=== PATIENT | female | born 1995 | race African-American/Black ===

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

== ENCOUNTER 2017-05-29 14:04 | Emergency (ER) | payer MEDICAID ==
[~2017-05-29] VITALS: Ht 144.8 cm; Wt 55.0 kg
[~2017-05-29 14:04] MED LIST changes: +ALBUAER3 INH; -CEPH-460 PO; +EPIN1INJ24 IM; +IBUP800T23 PO; +MACR100C2 PO; +PHEN-510 PO; +PRED20 PO; +PROZ20CA11 PO; -PYRI200T4 PO; +ZOFR4TAB3 SL
[2017-05-29 14:07] VITALS: BP 126/83; PULSE 103; RESP 15; TEMP 98.4; O2SAT 97
[2017-05-29] MEDS ORDERED: SODIUM CHLOR 0.9% 1000 ML INJ 1,000 ML IV ONE (15:45)
[2017-05-29 16:32] LABS: AUTOMATED NEUTROPHIL # 3.2 TH/MM3 (1.8-7.7); BASOPHIL # 0.1 TH/MM3 (0-0.2); EOSINOPHIL # 0.5 TH/MM3 (0-0.4); EOSINOPHIL % 6.9 % (0.0-4.0); HEMATOCRIT 40.6 % (35.0-46.0); HEMO FLAGS DIFF FINAL; LYMPH % 31.1 % (9.0-44.0); LYMPHOCYTE # 2.1 TH/MM3 (1.0-4.8); MEAN CELL VOLUME 85.7 FL (80.0-100.0); MEAN CORPUSCULAR HEMOGLOBIN 27.8 PG (27.0-34.0); MEAN CORPUSCULAR HGB CONC 32.5 % (32.0-36.0); MONO % 12.6 % (0.0-8.0); NEUT % 48.4 % (16.0-70.0); PLATELET COUNT 326 TH/MM3 (150-450); RED BLOOD COUNT 4.74 MIL/MM3 (4.00-5.30); RED CELL DISTRIBUTION WIDTH 15.3 % (11.6-17.2); WHITE BLOOD COUNT 6.6 TH/MM3 (4.0-11.0)
[2017-05-29 16:48] LABS: ALT (GPT) 28 U/L (9-42)
[2017-05-29 16:55] LABS: ANION GAP 7 MEQ/L (5-15); AST (GOT) 28 U/L (16-38); BICARBONATE 25.5 MEQ/L (21.0-32.0); BLOOD UREA NITROGEN 6 MG/DL (7-18); CHLORIDE 106 MEQ/L (98-107); GLOMERULAR FILTRATION RATE 91 ML/MIN (>89); SODIUM (NA) 138 MEQ/L (136-145)
--- NOTE | 2017-05-29 16:55 | PD ---
HPI Chief Complaint: Neuro Symptoms/ Deficits Time Seen by Provider: 15:36 Travel History International Travel<30 days: No Contact w/Intl Traveler<30days: No Traveled to known affect area: No History of Present Illness HPI This is a 21-year-old female who presents to the emergency department with generalized weakness. She says it's been coming in waves all day, intermittent , moderate severity. She says she's had trouble with it over the past month and she saw her primary care doctor who recommended that she get blood work performed but she hasn't got it done yet. She says when it happens her entire body goes week, constant, severe, to the point where she needs her boyfriend help her walk. She doesn't feel it more in her legs or her arms and she feels like she gets pins and needles in her arms and legs and she feels very tired. She says she feels very fatigued. PFSH Past Medical History Asthma: Yes Blood Disorders: Yes (sickle cell trait) Diminished Hearing: No Sickle Cell Disease: Yes (trait) Tetanus Vaccination: Unknown Influenza Vaccination: Yes ?: Not LMP: 05/28/17 Menopausal: No Social History Alcohol Use: No Tobacco Use: No Substance Use: No Allergies-Medications (Allergen,Severity, Reaction): Coded Allergies: No Known Allergies (Unverified , 12/02/16) Reported Meds & Prescriptions Reported Meds & Active Scripts Active Pyridium (Phenazopyridine HCl) 200 Mg Tablet 200 Tab PO Q8HR Proair Hfa 8.5 GM Inh (Albuterol Sulfate) 90 Mcg/Act Aer 2 Puff INH Q4-6H PRN 108 mcg/actuation Prednisone 20 Mg Tab 40 Mg PO DAILY Take 40 mg (2 tablets) daily for 5 days Macrobid (Nitrofurantoin Monohydrate Macrocrystals) 100 Mg Capsule 100 Mg PO BID Ibuprofen 800 Mg Tab 800 Mg PO Q6HR PRN Zofran Odt (Ondansetron Odt) 4 Mg Tab 4 Mg SL Q6HR PRN 3 Days Reported Prozac (Fluoxetine HCl) 20 Mg Cap 20 Mg PO DAILY Epinephrine Inj (Epinephrine) 0.15 Mg/0.3 Ml Inj 0.15 Mg IM DIRECTED Flonase Allergy Relief Children Nasal [place] (Fluticasone Nasal [place]) 50 Mcg/ Act [place] 2 [place] EACH NARE DAILY 50 mcg/spray Loratadine 10 Mg Tab 10 Mg PO DAILY Singulair (Montelukast Sodium) 10 Mg Tab 10 Mg PO HS Review of Systems Except as stated in HPI: all other systems reviewed are Neg Physical Exam Narrative GENERAL:Well appearing, no acute distress SKIN: Focused skin assessment warm and dry. HEAD: Atraumatic. Normocephalic. EYES: Pupils equal and round. No injection or drainage. ENT: Moist mucous membranes NECK: Trachea midline. CARDIOVASCULAR: Regular rate and rhythm. No murmur appreciated. RESPIRATORY: Clear to auscultation. Breath sounds equal bilaterally. GASTROINTESTINAL: Abdomen soft, non-tender, nondistended. MUSCULOSKELETAL: No obvious deformities. NEUROLOGICAL: Awake and alert. No obvious cranial nerve deficits. 5 out of 5 strength in the bilateral upper and lower extremities. No dysarthria or aphasia. No upper extremity ataxia. PSYCHIATRIC: Appropriate mood and affect; insight and judgment normal. Data Data Last Documented VS Vital Signs Date Time Temp Pulse Resp B/P (MAP) Pulse Ox O2 Delivery O2 Flow Rate FiO2 05/29/17 16:05 18 99 Room Air 05/29/17 14:07 98.4 103 126/83 (97) Orders Orders Complete Blood Count With Diff (05/29/17 15:45) Comprehensive Metabolic Panel (05/29/17 15:45) Creatine Kinase (Cpk) (05/29/17 15:45) ^ Insert Iv (05/29/17 15:45) Sodium Chlor 0.9% 1000 Ml Inj (Ns 1000 M (05/29/17 15:45) Thyroid Stimulating Hormone (05/29/17 15:45) Ed Urine Pregnancytest Poc (05/29/17 16:25) Urinalysis - C+S If Indicated (05/29/17 17:04) Labs Laboratory Tests Test 05/29/17 16:00 05/29/17 17:10 White Blood Count 6.6 TH/MM3 Red Blood Count 4.74 MIL/MM3 Hemoglobin 13.2 GM/DL Hematocrit 40.6 % Mean Corpuscular Volume 85.7 FL Mean Corpuscular Hemoglobin 27.8 PG Mean Corpuscular Hemoglobin Concent 32.5 % Red Cell Distribution Width 15.3 % Platelet Count 326 TH/MM3 Mean Platelet Volume 8.5 FL Neutrophils (%) (Auto) 48.4 % Lymphocytes (%) (Auto) 31.1 % Monocytes (%) (Auto) 12.6 % Eosinophils (%) (Auto) 6.9 % Basophils (%) (Auto) 1.0 % Neutrophils # (Auto) 3.2 TH/MM3 Lymphocytes # (Auto) 2.1 TH/MM3 Monocytes # (Auto) 0.8 TH/MM3 Eosinophils # (Auto) 0.5 TH/MM3 Basophils # (Auto) 0.1 TH/MM3 CBC Comment DIFF FINAL Differential Comment Blood Urea Nitrogen 6 MG/DL Creatinine 0.96 MG/DL Random Glucose 82 MG/DL Total Protein 7.4 GM/DL Albumin 3.5 GM/DL Calcium Level 8.8 MG/DL Alkaline Phosphatase 50 U/L Aspartate Amino Transf (AST/SGOT) 28 U/L Alanine Aminotransferase (ALT/SGPT) 28 U/L Total Bilirubin 0.3 MG/DL Sodium Level 138 MEQ/L Potassium Level 4.3 MEQ/L Chloride Level 106 MEQ/L Carbon Dioxide Level 25.5 MEQ/L Anion Gap 7 MEQ/L Estimat Glomerular Filtration Rate 91 ML/MIN Total Creatine Kinase 166 U/L Thyroid Stimulating Hormone 3rd Gen 0.835 uIU/ML Urine Color YELLOW Urine Turbidity CLEAR Urine pH 6.5 Urine Specific [place] 1.013 Urine Protein NEG mg/dL Urine Glucose (UA) NEG mg/dL Urine Ketones NEG mg/dL Urine Occult Blood LARGE Urine Nitrite NEG Urine Bilirubin NEG Urine Urobilinogen LESS THAN 2.0 MG/DL Urine Leukocyte Esterase NEG Urine RBC 48 /hpf Urine WBC 2 /hpf Urine Squamous Epithelial Cells 2 /hpf Urine Bacteria RARE /hpf Microscopic Urinalysis Comment CULT NOT INDICATED MDM Medical Decision Making Medical Screen Exam Complete: Yes Emergency Medical Condition: Yes Interpretation(s) Afebrile, mild tachycardia, normotensive No leukocytosis Differential Diagnosis Anemia, electrolyte abnormality, viral syndrome, Guillain-Evans, multiple sclerosis, depression Narrative Course This is a 21-year-old female who presents to the emergency department with generalized malaise and fatigue. Her neurologic exam is a little bit inconsistent. She doesn't give great effort to lift her arms but then she's easily able to do an ataxia exam and she is able to grab for things and adjust herself in bed. She was able to walk without difficulty but she gives a week and effort when she lifts her legs off the bed. I don't think her neurologic symptoms are physiologic. She has a strange affect and closes her eyes sometimes when talking to her. I suspect this may reflect some depression. Labs are obtained which are reassuring. I don't think she requires any neuroimaging as her weakness is global and more subjective and she appears otherwise well. Patient will be discharged home to follow up with her primary care physician. Diagnosis Primary Impression: Fatigue Qualified Codes: R53.83 - Other fatigue Patient Instructions: General Instructions Additional Instructions: If you develop severe worsening headache, persistent vomiting, numbness, weakness, difficulty walking or difficulty talking return to the emergency department immediately. Follow-up with her primary care physician without fail. Med/Other Pt SpecificInfo: No Change to Meds Disposition: 01 DISCHARGE HOME Condition: Stable Shani Hannah MD May 29, 2017 16:55
[2017-05-29 16:59] LABS: POTASSIUM 4.3 MEQ/L (3.5-5.1)
[2017-05-29 17:00] LABS: ALKALINE PHOSPHATASE 50 U/L (45-117); CREATINE KINASE 166 U/L (26-192); TOTAL BILIRUBIN ADULT 0.3 MG/DL (0.2-1.0)
[2017-05-29 17:52] LABS: BACTERIA, URINE RARE /hpf; BLOOD, URINE LARGE (NEG); COMMENT (UR) CULT NOT INDICATED; CULTURE IF INDICATED CULT NOT INDICATED; GLUCOSE,URINE NEG (NEG); KETONE, URINE NEG (NEG); NITRITE,URINE NEG (NEG); PH, URINE 6.5 (5.0-8.5); SQUAMOUS EPITHELIAL CELL URINE 2 /hpf (0-5); URINE COLOR YELLOW (YELLW/STRAW)
== END 2017-05-29 18:21 | disposition home or self-care (01) ==
LOC: NEPD 14:04
DX: R53.83 Other fatigue (principal); J45.909 Unspecified asthma, uncomplicated
CPT/HCPCS: 80053; 81001; 82550; 84443; 84703; 85025; 96360; 99284; J7030

== ENCOUNTER 2017-08-10 18:40 | Emergency (ER) | payer MEDICAID ==
[~2017-08-10] VITALS: Ht 144.8 cm; Wt 50.0 kg
[~2017-08-10 18:40] MED LIST changes: +IBUP1TAB7 PO; -IBUP800T23 PO
[2017-08-10 18:43] VITALS: BP 136/90; PULSE 94; RESP 16; TEMP 97.5; O2SAT 99
[2017-08-10] MEDS ORDERED: MACR100C2 PO (19:12)
[2017-08-10] MEDS ORDERED: PHEN0.4T PO (19:12)
[2017-08-10] MEDS ORDERED: PHEN-510 PO (19:12)
--- NOTE | 2017-08-10 19:19 | PD ---
HPI Chief Complaint: Complaint Time Seen by Provider: 19:04 Travel History International Travel<30 days: No Contact w/Intl Traveler<30days: No Traveled to known affect area: No History of Present Illness HPI 21-year-old black female presents emergent department with a 1-2 week history of urinary frequency, urgency and some mild dysuria. Patient states that this is similar to her urinary tract infections in the past. She denies any fever chills. No nausea vomiting. No back pain. No vaginal discharge or abnormal bleeding. Denies . Symptoms are moderate. No alleviating factors. PFSH Past Medical History Asthma: Yes Blood Disorders: Yes (sickle cell trait) Diminished Hearing: No Sickle Cell Disease: Yes (trait) ?: Not Menopausal: No Past Surgical History Surgical History: No Previous Surgery Social History Alcohol Use: No Tobacco Use: No Substance Use: No Allergies-Medications (Allergen,Severity, Reaction): Coded Allergies: No Known Allergies (Unverified , 12/02/16) Reported Meds & Prescriptions Reported Meds & Active Scripts Active Pyridium (Phenazopyridine HCl) 100 Mg Tab 100 Mg PO Q8H PRN Macrobid (Nitrofurantoin Monoh/Nitrofur Macro) 100 Mg Cap 100 Mg PO BID 7 Days Pyridium (Phenazopyridine HCl) 200 Mg Tablet 200 Tab PO Q8HR Macrobid (Nitrofurantoin Monohydrate Macrocrystals) 100 Mg Capsule 100 Mg PO BID Proair Hfa 8.5 GM Inh (Albuterol Sulfate) 90 Mcg/Act Aer 2 Puff INH Q4-6H PRN 108 mcg/actuation Prednisone 20 Mg Tab 40 Mg PO DAILY Take 40 mg (2 tablets) daily for 5 days Ibuprofen 800 Mg Tab 800 Mg PO Q6HR PRN Zofran Odt (Ondansetron Odt) 4 Mg Tab 4 Mg SL Q6HR PRN 3 Days Reported Prozac (Fluoxetine HCl) 20 Mg Cap 20 Mg PO DAILY Epinephrine Inj (Epinephrine) 0.15 Mg/0.3 Ml Inj 0.15 Mg IM DIRECTED Flonase Allergy Relief Children Nasal [place] (Fluticasone Nasal [place]) 50 Mcg/ Act [place] 2 [place] EACH NARE DAILY 50 mcg/spray Loratadine 10 Mg Tab 10 Mg PO DAILY Singulair (Montelukast Sodium) 10 Mg Tab 10 Mg PO HS Review of Systems Except as stated in HPI: all other systems reviewed are Neg Physical Exam Narrative GENERAL: Well-developed, well-nourished in no acute distress. Nontoxic appearing. HEAD: Normocephalic, atraumatic. EYES: Pupils equal round and reactive. Extraocular motions intact. No scleral icterus. No injection or drainage. ENT: TMs clear without erythema. The external auditory canals clear. Nose: clear . Posterior pharynx is pink and moist. No tonsillar edema or exudate. Uvula midline. Airway patent. NECK: Trachea midline.Supple, nontender, moves head freely. No central bony tenderness or spasm. CARDIOVASCULAR: Regular rate and rhythm without murmurs, gallops, or rubs. RESPIRATORY: Clear to auscultation. Breath sounds equal bilaterally. No wheezes , rales, or rhonchi. GASTROINTESTINAL: Abdomen soft, non-tender, nondistended. No hepato-splenomegaly , or palpable masses. No guarding. EXTREMITIES: No clubbing, cyanosis, or edema. No joint tenderness, effusion, or edema noted. BACK: Nontender without deformity or crepitance. No flank tenderness. Data Data Last Documented VS Vital Signs Date Time Temp Pulse Resp B/P (MAP) Pulse Ox O2 Delivery O2 Flow Rate FiO2 08/10/17 18:43 97.5 94 16 136/90 (105) 99 Room Air Orders Orders Urinalysis - C+S If Indicated (08/10/17 19:07) Ed Urine Pregnancytest Poc (08/10/17 19:07) MDM Medical Decision Making Medical Screen Exam Complete: Yes Emergency Medical Condition: Yes Medical Record Reviewed: Yes Interpretation(s) Urine test: Negative Differential Diagnosis Differential diagnoses: Pyelonephritis, UTI, vaginitis Narrative Course Patient's urine pricey test is negative. She is given prescriptions for Macrobid and Pyridium. This is UTI Diagnosis Primary Impression: UTI (urinary tract infection) Qualified Codes: N30.00 - Acute cystitis without hematuria Patient Instructions: General Instructions Additional Instructions: Rest. Increase fluids. Macrobid and Pyridium. Follow-up with a primary care doctor in one week. Return to the ER for any problems. Med/Other Pt SpecificInfo: Prescription(s) given Scripts Phenazopyridine (Pyridium) 100 Mg Tab 100 MG PO Q8H Y for DYSURIA, #6 TAB 0 Refills Prov: Rashmi Hassan DO 08/10/17 Nitrofurantoin Monohydrate Macrocrystals (Macrobid) 100 Mg Cap 100 MG PO BID for Infection for 7 Days, #14 CAP 0 Refills Prov: Rashmi Hassan DO 08/10/17 Phenazopyridine HCl (Pyridium) 200 Mg Tablet 200 TAB PO Q8HR for Dysuria, #20 TAB Prov: Rashmi Hassan DO 08/10/17 Nitrofurantoin Monohydrate Macrocrystals (Macrobid) 100 Mg Capsule 100 MG PO BID for Infection, #14 CAP 0 Refills Prov: Rashmi Hassan DO 08/10/17 Disposition: 01 DISCHARGE HOME Condition: Stable Jose Ramon Montgomery Aug 10, 2017 19:19
[2017-08-10] MEDS ORDERED: LORA-520 (19:30)
[2017-08-10 19:42] LABS: BILIRUBIN, URINE NEG (NEG); BLOOD, URINE NEG (NEG); GLUCOSE,URINE NEG (NEG); KETONE, URINE NEG (NEG); NITRITE,URINE NEG (NEG); URINE LEUKOCYTE ESTERASE MOD (NEG)
[2017-08-10 19:43] LABS: URINE COLOR STRAW (YELLW/STRAW)
== END 2017-08-10 19:47 | disposition home or self-care (01) ==
LOC: NEPD 18:40
DX: N30.00 Acute cystitis without hematuria (principal); D57.3 Sickle-cell trait; J45.909 Unspecified asthma, uncomplicated
CPT/HCPCS: 81001; 84703; 99284

== ENCOUNTER 2017-08-30 15:49 | Emergency (ER) | payer MEDICAID ==
[~2017-08-30] VITALS: Ht 144.8 cm; Wt 50.0 kg
[~2017-08-30 15:49] MED LIST changes: +LORA-520; -LORA10TA PO; -PHEN-510 PO; +PHEN0.4T PO
[2017-08-30 15:51] VITALS: BP 130/88; PULSE 101; RESP 14; TEMP 98.2; O2SAT 97
--- NOTE | 2017-08-30 17:01 | PD ---
HPI Chief Complaint: Injury Time Seen by Provider: 16:55 Travel History International Travel<30 days: No Contact w/Intl Traveler<30days: No Traveled to known affect area: No History of Present Illness HPI 21-year-old Afro-[place] female presents the emergency department status post crush type injury to the right forearm in an elevator door which showed upon her arm, the elevator started going down x-ray of the patient. She did pull the arm from the elevator. This occurred 5 days ago. Patient continues to have is in the forearm, elbow, and shoulder which she describes as a tightness and spasm. She denies numbness or tingling of the hand itself. She has been taking Naprosyn without much improvement. She is here to have it evaluated. There is no abrasions or open wounds. She has no other complaints. Pain is currently 6 out of 10 and worse with movement. She has no known drug allergies. PFSH Past Medical History Asthma: Yes Blood Disorders: Yes (sickle cell trait) Diminished Hearing: No Medical other: Yes (Dana Evans) Respiratory: Yes (ASTHMA) Immunizations Current: Yes Sickle Cell Disease: Yes (trait) Influenza Vaccination: No ?: Not LMP: 08/18/17 Menopausal: No Past Surgical History Other Surgery: Yes (biopsy) Social History Alcohol Use: No Tobacco Use: No Substance Use: No Allergies-Medications (Allergen,Severity, Reaction): Coded Allergies: No Known Allergies (Unverified Adverse Reaction, Unknown, 08/30/17) Reported Meds & Prescriptions Reported Meds & Active Scripts Active Macrobid (Nitrofurantoin Monoh/Nitrofur Macro) 100 Mg Cap 100 Mg PO BID 7 Days Proair Hfa 8.5 GM Inh (Albuterol Sulfate) 90 Mcg/Act Aer 2 Puff INH Q4-6H PRN 108 mcg/actuation Reported Allergy (Loratadine) 10 Mg Tab Prozac (Fluoxetine HCl) 20 Mg Cap 40 Mg PO DAILY Epinephrine Inj (Epinephrine) 0.15 Mg/0.3 Ml Inj 0.15 Mg IM DIRECTED Flonase Allergy Relief Children Nasal [place] (Fluticasone Nasal [place]) 50 Mcg/ Act [place] 2 [place] EACH NARE DAILY 50 mcg/spray Singulair (Montelukast Sodium) 10 Mg Tab 10 Mg PO HS Review of Systems Except as stated in HPI: all other systems reviewed are Neg General / Constitutional: No: Fever Eyes: No: Visual changes HENT: No: Headaches Cardiovascular: No: Chest Pain or Discomfort Respiratory: No: Shortness of Breath Gastrointestinal: No: Abdominal Pain Genitourinary: No: Dysuria Musculoskeletal: Positive: Myalgias, Arthralgias, Limited ROM, Pain Skin: No Rash Neurologic: No: Weakness Psychiatric: No: Depression Endocrine: No: Polydipsia Hematologic/Lymphatic: No: Easy Bruising Physical Exam Narrative GENERAL: She appears in mild to moderate distress. He appears somewhat histrionic. SKIN: Warm and dry. Normal color. Normal turgor. No abrasions. No ecchymosis. HEAD: Atraumatic. Normocephalic. EYES: Pupils equal and round. No scleral icterus. No injection or drainage. ENT: No nasal bleeding or discharge. Mucous membranes pink and moist. Pharynx is clear. Airway is patent. NECK: Trachea midline. Neck is supple and nontender. CARDIOVASCULAR: Regular rate and rhythm. RESPIRATORY: No accessory muscle use. Clear to auscultation. Breath sounds equal bilaterally. GASTROINTESTINAL: Abdomen soft, non-tender, nondistended. Hepatic and splenic margins not palpable. MUSCULOSKELETAL: Extremities without clubbing, cyanosis, or edema. No obvious deformities. Patient has distractible pain of the right arm. No point tenderness is noted on exam. Range of motion is limited by pain only. Neurovascular exam is unremarkable. No decreased pallor. No paresthesias. No signs of compartment syndrome on my exam. NEUROLOGICAL: Awake and alert. No obvious cranial nerve deficits. Motor grossly within normal limits. Five out of 5 muscle strength in the arms and legs. Normal speech. PSYCHIATRIC: Appropriate mood and affect; insight and judgment normal. Data Data Last Documented VS Vital Signs Date Time Temp Pulse Resp B/P (MAP) Pulse Ox O2 Delivery O2 Flow Rate FiO2 08/30/17 15:51 98.2 101 14 130/88 (102) 97 Orders Orders Forearm (2vws) (08/30/17 16:46) [facility] Medical Decision Making Medical Screen Exam Complete: Yes Emergency Medical Condition: Yes Differential Diagnosis Crush injury right forearm with muscle strain. Muscle spasm. Compartment syndrome. Narrative Course Patient is in no acute distress. X-ray of the forearm is ordered. No acute fractures noted by exam per radiologist. Patient is felt to have a tenosynovitis of the right forearm with muscle spasm. Be treated with ibuprofen 600 mg 4 times a day. #40. Patient also given Flexeril 5 mg up to 3 times a day when necessary muscle spasm. #15. Patient should use heat followed by ice 3 times daily. Gentle stretching. Follow-up with worsening symptoms develop in the next week. Diagnosis Primary Impression: Crushing injury of forearm, right Qualified Codes: S57.81XA - Crushing injury of right forearm, initial encounter Additional Impression: Tenosynovitis of forearm Referrals: Primary Care Physician Patient Instructions: General Instructions, Tendinitis (ED) Additional Instructions: No acute fractures noted by exam per radiologist. Patient is felt to have a tenosynovitis of the right forearm with muscle spasm. Be treated with ibuprofen 600 mg 4 times a day. #40. Patient also given Flexeril 5 mg up to 3 times a day when necessary muscle spasm. #15. Patient should use heat followed by ice 3 times daily. Gentle stretching. Follow-up with worsening symptoms develop in the next week. Med/Other Pt SpecificInfo: Prescription(s) given Disposition: 01 DISCHARGE HOME Condition: Stable Nato Wheeler Aug 30, 2017 17:01
--- NOTE | 2017-08-30 17:20 | RADRPT ---
EXAM DATE/TIME: 08/30/2017 17:09 [facility] COMPARISON: No previous studies available for comparison. INDICATIONS : Patient states elevator slammed shut on right forearm. Right midshaft forearm pain. MEDICAL HISTORY : None. SURGICAL HISTORY : None. ENCOUNTER: Initial ACUITY: 4 - 6 days PAIN SCORE: 9/10 LOCATION: Right Forearm FINDINGS: Two view examination of the right forearm demonstrates no evidence of fracture or dislocation. Bony mineralization is normal. The soft tissue structures are intact. CONCLUSION: No acute fracture. Connor Monte MD on August 30, 2017 at 17:18 Board Certified Radiologist. This report was verified electronically.
[2017-08-30] MEDS ORDERED: CYCL5TAB PO (18:57)
[2017-08-30] MEDS ORDERED: IBUP-232 PO (18:57)
== END 2017-08-30 21:07 | disposition home or self-care (01) ==
LOC: NEPD 15:49
DX: S57.81XA Crushing injury of right forearm, initial encounter (principal); W23.0XXA Caught, crushed, jammed, or pinched between moving objects, initial encounter; M65.9 Synovitis and tenosynovitis, unspecified; D57.3 Sickle-cell trait; J45.909 Unspecified asthma, uncomplicated
CPT/HCPCS: 73090; 99283

== ENCOUNTER 2017-11-11 11:24 | Emergency (ER) | payer MEDICAID ==
[~2017-11-11] VITALS: Ht 144.8 cm; Wt 50.3 kg
[~2017-11-11 11:24] MED LIST changes: +CYCL5TAB PO; +IBUP-232 PO; -IBUP1TAB7 PO; -PHEN0.4T PO; -PRED20 PO; -ZOFR4TAB3 SL
[2017-11-11 11:31] VITALS: BP 112/65; PULSE 92; RESP 18; TEMP 98.6; O2SAT 99
[2017-11-11] MEDS ORDERED: SODIUM CHLOR 0.9% 1000 ML INJ 1,000 ML IV ONE (11:57)
[2017-11-11] MEDS ORDERED: SODIUM CHLORIDE 0.9% FLUSH 10 ML FLUSH IVF PRN (12:00)
[2017-11-11 12:06] VITALS: O2SAT 98
--- NOTE | 2017-11-11 12:19 | PD ---
HPI Chief Complaint: Dizziness Time Seen by Provider: 11:57 Travel History International Travel<30 days: No Contact w/Intl Traveler<30days: No Traveled to known affect area: No History of Present Illness HPI 22-year-old female patient with history of asthma, recent episodes of near syncope and episodes of dizziness currently being evaluated by her primary care doctor, presents to the ER today because over the last few days she has had more episodes of dizziness, feels like she needs to sit down, general weakness, and nausea. She denies any vomiting, abdominal pain, chest pains, shortness of breath, coughing, or any other symptoms. Modifying Factors: None Associated Signs & Symptoms: Dizziness episodes, nausea, episodes of near syncope worsening in last few days Risk Factors: None PFSH Past Medical History Asthma: Yes Blood Disorders: Yes (sickle cell trait) Diminished Hearing: No Medical other: Yes (EPSTEN SANCHEZ) Respiratory: Yes (ASTHMA) Immunizations Current: Yes Sickle Cell Disease: Yes (trait) Tetanus Vaccination: > 5 Years Influenza Vaccination: No ?: Not LMP: 10/2017 Menopausal: No Past Surgical History Other Surgery: Yes (biopsy) Social History Alcohol Use: No Tobacco Use: No Substance Use: No Allergies-Medications (Allergen,Severity, Reaction): Coded Allergies: latex (Verified Allergy, Severe, Itching, 11/11/17) miconazole (Verified Allergy, Severe, Hives, 11/11/17) Reported Meds & Prescriptions Reported Meds & Active Scripts Active Reported Allergy (Loratadine) 10 Mg Tab Prozac (Fluoxetine HCl) 20 Mg Cap 40 Mg PO DAILY Epinephrine Inj (Epinephrine) 0.15 Mg/0.3 Ml Inj 0.15 Mg IM DIRECTED Flonase Allergy Relief Children Nasal [place] (Fluticasone Nasal [place]) 50 Mcg/ Act [place] 2 [place] EACH NARE DAILY 50 mcg/spray Singulair (Montelukast Sodium) 10 Mg Tab 10 Mg PO HS Review of Systems Except as stated in HPI: all other systems reviewed are Neg Physical Exam Narrative GENERAL: Well-developed young -[place] female patient currently in mild distress. Awake and oriented 3. SKIN: Focused skin assessment warm/dry. HEAD: Atraumatic. Normocephalic. EYES: Pupils equal and round. No scleral icterus. No injection or drainage. ENT: No nasal bleeding or discharge. Mucous membranes pink and moist. NECK: Trachea midline. No JVD. Supple. CARDIOVASCULAR: Regular rate and rhythm. No murmur appreciated. RESPIRATORY: No accessory muscle use. Clear to auscultation. Breath sounds equal bilaterally. GASTROINTESTINAL: Abdomen soft, non-tender, nondistended. Hepatic and splenic margins not palpable. MUSCULOSKELETAL: No obvious deformities. No clubbing. No cyanosis. No edema. NEUROLOGICAL: Awake and alert. No obvious cranial nerve deficits. Motor grossly within normal limits. Normal speech. PSYCHIATRIC: Appropriate mood and affect; insight and judgment normal. Data Data Last Documented VS Vital Signs Date Time Temp Pulse Resp B/P (MAP) Pulse Ox O2 Delivery O2 Flow Rate FiO2 11/11/17 12:06 98 Room Air 11/11/17 11:31 98.6 92 18 112/65 (81) Orders Orders Electrocardiogram (11/11/17 11:57) Ed Urine Pregnancytest Poc (11/11/17 11:57) Complete Blood Count With Diff (11/11/17 11:57) Comprehensive Metabolic Panel (11/11/17 11:57) Urinalysis - C+S If Indicated (11/11/17 11:57) Ecg Monitoring (11/11/17 11:57) Iv Access Insert/Monitor (11/11/17 11:57) Oximetry (11/11/17 11:57) Sodium Chloride 0.9% Flush (Ns Flush) (11/11/17 12:00) Sodium Chlor 0.9% 1000 Ml Inj (Ns 1000 M (11/11/17 11:57) Urine Culture (11/11/17 12:45) Ed Discharge Order (11/11/17 13:43) Labs Laboratory Tests Test 11/11/17 12:30 11/11/17 12:45 White Blood Count 7.4 TH/MM3 Red Blood Count 4.45 MIL/MM3 Hemoglobin 12.9 GM/DL Hematocrit 39.6 % Mean Corpuscular Volume 88.9 FL Mean Corpuscular Hemoglobin 29.0 PG Mean Corpuscular Hemoglobin Concent 32.6 % Red Cell Distribution Width 13.2 % Platelet Count 308 TH/MM3 Mean Platelet Volume 8.3 FL Neutrophils (%) (Auto) 60.0 % Lymphocytes (%) (Auto) 24.1 % Monocytes (%) (Auto) 7.3 % Eosinophils (%) (Auto) 7.7 % Basophils (%) (Auto) 0.9 % Neutrophils # (Auto) 4.4 TH/MM3 Lymphocytes # (Auto) 1.8 TH/MM3 Monocytes # (Auto) 0.5 TH/MM3 Eosinophils # (Auto) 0.6 TH/MM3 Basophils # (Auto) 0.1 TH/MM3 CBC Comment DIFF FINAL Differential Comment Blood Urea Nitrogen 8 MG/DL Creatinine 0.94 MG/DL Random Glucose 83 MG/DL Total Protein 7.3 GM/DL Albumin 3.4 GM/DL Calcium Level 8.7 MG/DL Alkaline Phosphatase 49 U/L Aspartate Amino Transf (AST/SGOT) 18 U/L Alanine Aminotransferase (ALT/SGPT) 26 U/L Total Bilirubin 0.4 MG/DL Sodium Level 139 MEQ/L Potassium Level 3.8 MEQ/L Chloride Level 106 MEQ/L Carbon Dioxide Level 26.2 MEQ/L Anion Gap 7 MEQ/L Estimat Glomerular Filtration Rate 92 ML/MIN Urine Collection Type CLEAN CATCH Urine Color YELLOW Urine Turbidity SL CLOUDY Urine pH 5.5 Urine Specific [place] 1.015 Urine Protein NEG mg/dL Urine Glucose (UA) NEG mg/dL Urine Ketones NEG mg/dL Urine Occult Blood NEG Urine Nitrite POS Urine Bilirubin NEG Urine Urobilinogen 0.2 MG/DL Urine Leukocyte Esterase SMALL Urine WBC 3-5 /hpf Urine Squamous Epithelial Cells 0-5 /hpf Urine Bacteria MANY /hpf Microscopic Urinalysis Comment CULTURE INDICATED Urine Collection Time 12:45 [facility] Medical Decision Making Medical Screen Exam Complete: Yes Emergency Medical Condition: Yes Medical Record Reviewed: Yes Interpretation(s) EKG shows sinus rhythm at a rate of 90 bpm. No signs of acute ST elevations or depressions. I do not see any delta waves or QT prolongation. Laboratory Tests Test 11/11/17 12:30 11/11/17 12:45 Eosinophils (%) (Auto) 7.7 % (0.0-4.0) Eosinophils # (Auto) 0.6 TH/MM3 (0-0.4) Urine Nitrite POS (NEG) Urine Leukocyte Esterase SMALL (NEG) Urine Bacteria MANY /hpf (NONE) Differential Diagnosis Dehydration versus metabolic issues versus sepsis versus dysrhythmias versus viral syndrome Narrative Course EKG did not show any signs of dysrhythmias. Metabolic panel is fairly unremarkable. Her UA is equivocal and is uncertain whether she may have some underlying UTI. I will treated considering that she is having some symptoms. I am not sure whether this is truly related to the dizziness. She is not . At this point, my plan would be to release her with follow-up to primary care doctor. Return for any worsening in symptoms as necessary. The plan has been discussed with her and she states understanding. Diagnosis Primary Impression: Dizziness Additional Impression: UTI (urinary tract infection) Med/Other Pt SpecificInfo: Prescription(s) given Scripts Nitrofurantoin Monohydrate Macrocrystals (Macrobid) 100 Mg Capsule 100 MG PO BID for Infection for 7 Days, #14 CAP 0 Refills Prov: Macarena Ventura MD 11/11/17 Disposition: 01 DISCHARGE HOME Condition: Stable Macaerna Ventura MD Nov 11, 2017 12:19
[2017-11-11 12:42] LABS: AUTOMATED NEUTROPHIL # 4.4 TH/MM3 (1.8-7.7); BASOPHIL # 0.1 TH/MM3 (0-0.2); BASOPHIL % 0.9 % (0.0-2.0); EOSINOPHIL # 0.6 TH/MM3 (0-0.4); EOSINOPHIL % 7.7 % (0.0-4.0); HEMATOCRIT 39.6 % (35.0-46.0); HEMOGLOBIN 12.9 GM/DL (11.6-15.3); LYMPH % 24.1 % (9.0-44.0); LYMPHOCYTE # 1.8 TH/MM3 (1.0-4.8); MEAN CELL VOLUME 88.9 FL (80.0-100.0); MEAN CORPUSCULAR HGB CONC 32.6 % (32.0-36.0); MEAN PLATELET VOLUME 8.3 FL (7.0-11.0); MONO % 7.3 % (0.0-8.0); MONOCYTE # 0.5 TH/MM3 (0-0.9); PLATELET COUNT 308 TH/MM3 (150-450); RED BLOOD COUNT 4.45 MIL/MM3 (4.00-5.30); RED CELL DISTRIBUTION WIDTH 13.2 % (11.6-17.2); WHITE BLOOD COUNT 7.4 TH/MM3 (4.0-11.0)
[2017-11-11 12:51] LABS: CHLORIDE 106 MEQ/L (98-107); SODIUM (NA) 139 MEQ/L (136-145)
[2017-11-11 12:54] LABS: CALCIUM 8.7 MG/DL (8.5-10.1)
[2017-11-11 12:55] LABS: ALBUMIN 3.4 GM/DL (3.4-5.0); BICARBONATE 26.2 MEQ/L (21.0-32.0); BLOOD UREA NITROGEN 8 MG/DL (7-18); GLUCOSE,RANDOM 83 MG/DL (74-106)
[2017-11-11 12:56] LABS: BILIRUBIN, URINE NEG (NEG); BLOOD, URINE NEG (NEG); GLUCOSE,URINE NEG (NEG); KETONE, URINE NEG (NEG); NITRITE,URINE POS (NEG); PH, URINE 5.5 (5.0-8.5); URINE COLOR YELLOW (YELLW/STRAW); URINE LEUKOCYTE ESTERASE SMALL (NEG)
[2017-11-11 12:58] LABS: ALT (GPT) 26 U/L (9-42); AST (GOT) 18 U/L (16-38); CREATININE 0.94 MG/DL (0.50-1.00); GLOMERULAR FILTRATION RATE 92 ML/MIN (>89)
[2017-11-11 12:59] LABS: TOTAL BILIRUBIN ADULT 0.4 MG/DL (0.2-1.0); TOTAL PROTEIN 7.3 GM/DL (6.4-8.2)
[2017-11-11 13:01] LABS: ALKALINE PHOSPHATASE 49 U/L (45-117)
[2017-11-11 13:02] LABS: BACTERIA, URINE MANY /hpf; SQUAMOUS EPITHELIAL CELL URINE 0-5 /hpf (0-5)
[2017-11-11 13:45] VITALS: BP 104/60; PULSE 98; RESP 16; O2SAT 98
[2017-11-11] MEDS ORDERED: MACR100C2 PO (13:45)
--- NOTE | 2017-11-12 13:23 | EKG ---
Date Performed: 11/11/2017 Time Performed: 12:26:28 PTAGE: 22 years EKG: Sinus rhythm NORMAL ECG NO PREVIOUS TRACING DOCTOR: Louis López Interpretating Date/Time 11/12/2017 13:21:26
== END 2017-11-11 14:47 | disposition home or self-care (01) ==
LOC: PHED 11:24
DX: R42 Dizziness and giddiness (principal); N39.0 Urinary tract infection, site not specified; B96.20 Unspecified Escherichia coli [E. coli] as the cause of diseases classified elsewhere; J45.909 Unspecified asthma, uncomplicated; D57.3 Sickle-cell trait
CPT/HCPCS: 80053; 81001; 84703; 85025; 87077; 87086; 87186; 93005; 96360; 96361; 99284; J7030